=== PATIENT | male | born 1985 | race Asian ===

== ENCOUNTER 2018-05-28 00:12 | Emergency (ER) | payer SELFPAY ==
[~2018-05-28] VITALS: Ht 172.7 cm; Wt 68.0 kg
[~2018-05-28 00:12] MED LIST: PROZAC10 MG ORAL; VALIUM2 MG ORAL
[2018-05-28 00:15] VITALS: BP 114/74
--- NOTE | 2018-05-28 00:15 | NUR ---
ED Nurse Note: pt brought in by EMS c/o abd pain started today after dinner, pt states he has hx pancreatitis and drank alcohol (sake) and started having pain. pt states he was seen by doctor 2months ago for same problem. pt AA&ox4, gcs=15, skin warm and dry, resp even and unlabored on RA, +Nausea but no active v/d at this time, +tenderness on abd diffused, active BS, will cont monitor. VSS. ERMD aware pt's condition.
[2018-05-28] MEDS ORDERED: Morphine Sulfate 4mg/ml Inj (IV USE ONLY) IVP ONE (00:45)
--- NOTE | 2018-05-28 01:00 | NUR ---
ED Nurse Note: pt continue to have pain after pain med, 12/06 on abd area, ERMD notified.
[2018-05-28] MEDS ORDERED: HYDROmorphone 1mg/ml Carpuject IVP ONE (01:15)
[2018-05-28 01:16] LABS: HEMATOCRIT 46.9 % (42.0-52.0); HEMOGLOBIN 15.9 G/DL (14.2-18.0); MEAN CORPUSCULAR VOLUME 94 FL (80-99); PLATELET COUNT 264 K/UL (150-450); RED BLOOD COUNT 4.99 M/UL (4.70-6.10); RED CELL DISTRIBUTION WIDTH 12.1 % (11.6-14.8)
[2018-05-28 01:21] LABS: ANION GAP 19 mmol/L (5-15); BLOOD UREA NITROGEN 11 mg/dL (7-18); CALCIUM 9.1 MG/DL (8.5-10.1); CARBON DIOXIDE 22 MMOL/L (21-32); CHLORIDE 102 MMOL/L (98-107); CREATININE 1.3 MG/DL (0.55-1.30); POTASSIUM 3.3 MMOL/L (3.5-5.1); SODIUM 143 MMOL/L (136-145)
[2018-05-28 01:26] LABS: ALANINE AMINOTRANSFERASE 27 U/L (12-78); ALBUMIN 4.2 G/DL (3.4-5.0); ALBUMIN/GLOBULIN RATIO 1.3 (1.0-2.7); ALKALINE PHOSPHATASE 68 U/L (46-116); ASPARTATE AMINO TRANSFERASE 23 U/L (15-37); BILIRUBIN,TOTAL 0.4 MG/DL (0.2-1.0)
[2018-05-28] MEDS ORDERED: Isovue-300 100ml vial INJ PRN (01:45)
--- NOTE | 2018-05-28 01:58 | NUR ---
ED Nurse Note: PT OFF TO CT
[2018-05-28] MEDS ORDERED: Ketorolac 30mg Inj IV ONE (03:15)
[2018-05-28] MEDS ORDERED: Dicyclomine HCl 10mg/5ml oral soln ORAL ONE (03:15)
[2018-05-28] MEDS ORDERED: Lidocaine 2% Visc 15ml soln ORAL ONE (03:15)
[2018-05-28] MEDS ORDERED: Mylanta II UD 30ml ORAL ONE (03:15)
[2018-05-28] MEDS ORDERED: RANITIDINE HCL150 MG ORAL (03:26)
[2018-05-28] MEDS ORDERED: ONDANSETRON ODT4 MG BC (03:26)
[2018-05-28] MEDS ORDERED: TYLENOL EXTRA500 MG ORAL (03:26)
--- NOTE | 2018-05-28 03:45 | NUR ---
ED Nurse Note: pt cleared to be d/c per ERMD, pt discharge and aftercare instruction provided w/ prescription, pt education done via discussion and handout, pt advised to follow up with pcp or return to ed if sx worsen or new sx develop, pt verbalized understanding and agrees with plan, iv d/c and wristband removed, vss, ambulatory w/ steady gait, left w/ all belongings, pt accompanied by .
[2018-05-28 03:48] VITALS: BP 118/67
--- NOTE | 2018-05-28 04:49 | Emergency Room Report ---
History of Present Illness General Chief Complaint: Abdominal Pain Source: Patient, Significant Other, EMS Present Illness HPI 32-year-old male presents ED for evaluation. Brought in by EMS complaining of abdominal pain and vomiting. Started a few hours ago. at bedside states patient has history of pancreatitis. Patient admits to drinking tonight. Pain is sharp, 10 out of 10, localized to upper quadrant. denies fevers chills. Denies chest pain or shortness of breath. No other aggravating relieving factors. Denies any other associated symptoms Allergies: Coded Allergies: No Known Allergies (Unverified , 05/28/18) Patient History Past Medical History: other - pancreatitis Past Surgical History: none Pertinent Family History: none Social History: Reports: alcohol use; Denies: smoking, drug use Immunizations: UTD Reviewed Nursing Documentation: PMH: Agreed; PSxH: Agreed Nursing Documentation-PMH Past Medical History: No History, Except For Review of Systems All Other Systems: negative except mentioned in HPI Physical Exam Vital Signs Date Time Temp Pulse Resp B/P (MAP) Pulse Ox O2 Delivery O2 Flow Rate FiO2 05/28/18 00:07 98.1 96 12 99/65 99 05/28/18 00:15 Room Air Sp02 EP Interpretation: reviewed, normal General Appearance: alert, GCS 15, non-toxic, severe distress Head: normocephalic, atraumatic Eyes: bilateral eye normal inspection, bilateral eye PERRL ENT: hearing grossly normal, normal pharynx, no angioedema, normal voice Neck: full range of motion, supple/symm/no masses Respiratory: chest non-tender, lungs clear, normal breath sounds, speaking full sentences Cardiovascular #1: regular rate, rhythm, no edema Cardiovascular #2: 2+ carotid (R), 2+ carotid (L), 2+ radial (R), 2+ radial (L) , 2+ dorsalis pedis (R), 2+ dorsalis pedis (L) Gastrointestinal: normal bowel sounds, soft, non-distended, no rebound, tenderness - epigastric Rectal: deferred Genitourinary: normal inspection, no CVA tenderness Musculoskeletal: back normal, gait/station normal, normal range of motion, non- tender Neurologic: alert, oriented x3, responsive, motor strength/tone normal, sensory intact, speech normal Psychiatric: judgement/insight normal, memory normal, anxious Reflexes: 3+ bicep (R), 3+ bicep (L), 3+ tricep (R), 3+ tricep (L), 3+ knee (R) , 3+ knee (L) Skin: normal color, no rash, warm/dry, well hydrated Lymphatic: no adenopathy Medical Decision Making Diagnostic Impression: Primary Impression: Alcohol abuse Additional Impression: Abdominal pain Qualified Codes: R10.10 - Upper abdominal pain, unspecified ER Course Hospital Course 32-year-old M presents to ED with abdominal pain Differential diagnosis includes- pancreatitis, gastritis, appendicits Clinical course Patient placed on stretcher. After initial history and physical I ordered labs , IV fluids, pain medications and CT scan Labs - noted leukocytosis, electrolytes ok, LFTs normal, lipase normal, alcohol level elevated CT scan shows no acute pathology Patient continues to have pain and is asking for additional pain meds. Patient did ask what pain medication he was given initially in how he milligrams he was given. I suspect drug-seeking behavior. Abdomen was soft. I see no acute pathology on CT to correlate with his exam I strongly encourage patient to stop drinking alcohol. Safe for discharge close outpatient follow-up. Does not have a PMD. We'll provide referrals I feel this is a highly complex case requiring extensive working including EKG/ Rhythm strip, Xray/CT/US, Blood/urine lab work, repeat exams while in ED, and administration of strong opiates/narcotics for pain control, admission to hospital or close patient follow up. Diagnosis - abdominal pain, alcohol abuse Stable and discharged to home with Rx zantac, zofran, tylenol. Followup with PMD. Return to ED if symptoms recur or worsen Labs Test 05/28/18 00:26 White Blood Count 18.0 K/UL (4.8-10.8) Red Blood Count 4.99 M/UL (4.70-6.10) Hemoglobin 15.9 G/DL (14.2-18.0) Hematocrit 46.9 % (42.0-52.0) Mean Corpuscular Volume 94 FL (80-99) Mean Corpuscular Hemoglobin 31.9 PG (27.0-31.0) Mean Corpuscular Hemoglobin Concent 33.9 G/DL (32.0-36.0) Red Cell Distribution Width 12.1 % (11.6-14.8) Platelet Count 264 K/UL (150-450) Mean Platelet Volume 7.6 FL (6.5-10.1) Neutrophils (%) (Auto) % (45.0-75.0) Lymphocytes (%) (Auto) % (20.0-45.0) Monocytes (%) (Auto) % (1.0-10.0) Eosinophils (%) (Auto) % (0.0-3.0) Basophils (%) (Auto) % (0.0-2.0) Sodium Level 143 MMOL/L (136-145) Potassium Level 3.3 MMOL/L (3.5-5.1) Chloride Level 102 MMOL/L (98-107) Carbon Dioxide Level 22 MMOL/L (21-32) Anion Gap 19 mmol/L (5-15) Blood Urea Nitrogen 11 mg/dL (7-18) Creatinine 1.3 MG/DL (0.55-1.30) Estimat Glomerular Filtration Rate > 60 mL/min (>60) Glucose Level 157 MG/DL (74-106) Calcium Level 9.1 MG/DL (8.5-10.1) Total Bilirubin 0.4 MG/DL (0.2-1.0) Aspartate Amino Transf (AST/SGOT) 23 U/L (15-37) Alanine Aminotransferase (ALT/SGPT) 27 U/L (12-78) Alkaline Phosphatase 68 U/L (46-116) Total Protein 7.4 G/DL (6.4-8.2) Albumin 4.2 G/DL (3.4-5.0) Globulin 3.2 g/dL Albumin/Globulin Ratio 1.3 (1.0-2.7) Lipase 121 U/L (73-393) Serum Alcohol 116 mg/dL CT/MRI/US Diagnostic Results CT/MRI/US Diagnostic Results : Imaging Test Ordered: CT A/P Impression Lower lungs: No acute findings. Liver: No acute findings. Fatty liver. Gallbladder: No acute findings. Spleen, pancreas, and adrenal glands: No acute findings. Kidneys: No hydronephrosis or obstructive nephrolithiasis. Both ureters are mildly dilated without obstructive process or stone is identified. This may be due to back pressure from a severely distended bladder. Bowel: No bowel obstruction. The appendix is normal. Bladder: Severely distended without wall thickening. Pelvic organs: Unremarkable. Aorta: No aneurysm. Bones: No acute fracture. Last Vital Signs Date Time Temp Pulse Resp B/P (MAP) Pulse Ox O2 Delivery O2 Flow Rate FiO2 05/28/18 03:48 98.7 84 18 118/67 100 Room Air Status: improved Disposition: HOME, SELF-CARE Condition: Stable Scripts Acetaminophen* (TYLENOL EXTRA STRENGTH*) 500 Mg Tablet 500 MG ORAL Q8H PRN for Prn Headache/Temp > 101, #30 TAB 0 Refills Prov: Surendra Alcantara MD 05/28/18 Ondansetron Odt* (ZOFRAN ODT*) 4 Mg Tab.rapdis 4 MG BC EVERY 8 HOURS, #10 TAB 0 Refills Prov: Surendra Alcantara MD 05/28/18 Ranitidine Hcl* (ZANTAC*) 150 Mg Tablet 150 MG ORAL TWICE A DAY, #30 TAB Prov: Surendra Alcantara MD 05/28/18 Referrals: NOT CHOSEN IPA/,REFERRING (PCP) [facility] Patient Instructions: Gastritis, Adult, [id number] Surendra Alcantara MD May 28, 2018 04:49
--- NOTE | 2018-05-28 09:14 | Diagnostic Imaging Report ---
Clinical Indication: Abdominal pain for 2 days Technique: No oral contrast utilized, per emergency room physician request IV administration nonionic contrast. Venous phase spiral acquisition obtained through the abdomen and pelvis. Multiplanar reconstructions were generated. Total dose length product 806 mGycm. CTDIvol(s) 14.56 mGy. Dose reduction achieved using automated exposure control Comparison: none Findings: The appendix is normal. No small bowel distention. No evidence of diverticulosis or diverticulitis. No free or loculated intraperitoneal gas or fluid. There is a small sliding-type hiatal hernia. The stomach and duodenum are otherwise unremarkable. The liver is equivocally minimally hypoattenuating. Subcentimeter low-attenuation lesions are seen in segment 7 and near the hepatic hilum. Focal fatty infiltration is seen in the usual location adjacent to the falciform ligament. The gallbladder, bile ducts, pancreas, spleen, adrenals are unremarkable. The proximal ureters are somewhat ectatic bilaterally, but no downstream obstructive lesion is demonstrated. The kidneys are otherwise unremarkable. No renal or ureteral calculi. The bladder is somewhat distended. No pelvic mass or adenopathy. No retroperitoneal or mesenteric mass or adenopathy. The included lung bases are clear. The bones are unremarkable. Impression: Bladder distention. Mild proximal ureterectasis is likely secondary to such Borderline fatty liver Subcentimeter low-attenuation liver lesions, too small to characterize, most likely benign simple cysts or bile hamartomas. No further follow-up necessary No acute abnormality This agrees with the preliminary interpretation provided overnight by [facility]erad[facility] service. The CT scanner at [facility] is accredited by the [employer] and the scans are performed using protocols designed to limit radiation exposure to as low as reasonably achievable to attain images of sufficient resolution adequate for diagnostic evaluation.
== END 2018-05-28 03:52 | disposition home or self-care (01) ==
LOC: EDBD 00:12 → EMR 00:46
DX: F10.10 Alcohol abuse, uncomplicated (principal); R10.10 Upper abdominal pain, unspecified
CPT/HCPCS: 36415; 74177; 80053; 83690; 85025; 96361; 96374; 96375; 99284; G0480; J1170; J1885; J2270; J2405; Q9967; S0028; 80329

== ENCOUNTER 2018-06-08 05:55 | Emergency (ER) | payer SELFPAY ==
[~2018-06-08] VITALS: Ht 167.6 cm; Wt 68.0 kg
[2018-06-08 05:55] VITALS: BP 129/78
[~2018-06-08 05:55] MED LIST changes: +ONDANSETRON ODT4 MG BC; +RANITIDINE HCL150 MG ORAL; +TYLENOL EXTRA500 MG ORAL
--- NOTE | 2018-06-08 05:55 | NUR ---
ED Nurse Note: Pt was BIBA from home. C/o lower abdominal pain 10/ today. Pt is A/O X4, Pt is very anxiety at this time, vital signs stable, waiting for orders.
--- NOTE | 2018-06-08 06:08 | Emergency Room Report ---
History of Present Illness General Chief Complaint: Abdominal Pain Source: Patient (Moy Guillen DO) Present Illness HPI Patient presents with complaints of epigastric abdominal pain nausea vomiting Reports that he gets these symptoms every 2 months He feels that it is from stress Denies any chest pain or shortness of breath Denies any diarrhea Pain is mainly epigastric Denies any neck pain or photophobia Denies any drug abuse he does report previous alcohol intake however denies any recently (ThuMoy sun DO) Allergies: Coded Allergies: No Known Allergies (Unverified , 05/28/18) Patient History Past Medical History: see triage record Pertinent Family History: none Reviewed Nursing Documentation: PMH: Agreed; PSxH: Agreed (ThuMoy olivo DO) Nursing Documentation-PMH Past Medical History: No History, Except For (ThupallaviMoy AMES) Review of Systems All Other Systems: negative except mentioned in HPI (ThupallaviMoy AMES) Physical Exam Vital Signs Date Time Temp Pulse Resp B/P (MAP) Pulse Ox O2 Delivery O2 Flow Rate FiO2 06/08/18 05:50 98.2 75 18 127/75 98 Room Air Sp02 EP Interpretation: reviewed, normal General Appearance: mild distress - in discomfort Head: normocephalic, atraumatic Eyes: bilateral eye PERRL, bilateral eye EOMI ENT: hearing grossly normal, normal pharynx, TMs + canals normal, uvula midline Neck: full range of motion, supple, no meningismus, no bony tend Respiratory: lungs clear, normal breath sounds, no rhonchi, no respiratory distress, no retraction, no accessory muscle use Cardiovascular #1: normal peripheral pulses, regular rate, rhythm, no edema, no gallop, no JVD, no murmur Gastrointestinal: normal bowel sounds, non tender - No discomfort on palpation however subjectively points to the epigastric region, soft, no mass, no organomegaly, non-distended, no guarding, no hernia, no pulsatile mass, no rebound Genitourinary: no CVA tenderness Musculoskeletal: normal inspection Neurologic: oriented x3, responsive, sales and catering coordinator III-XII nml as tested, motor strength/ tone normal, sensory intact Psychiatric: mood/affect normal Skin: normal color, no rash, warm/dry, palpation normal Lymphatic: normal inspection, no adenopathy (ThuMoy olivo DO) Medical Decision Making Diagnostic Impression: Primary Impression: Abdominal pain Qualified Codes: R10.13 - Epigastric pain Additional Impression: Alcohol abuse ER Course Patient is a fairly complex patient with multiple differential to consideration including but not limited to cardiac cardiopulmonary and vascular emergencies Patient has had recent CT imaging in one was not repeated at this time Patient does require further reevaluation however (Moy Guillen DO) ER Course Please see above note. He admits to alcohol recently. Patient is improved with medical treatment. Lipase normal. White count 14,000. Patient refused chest x-ray. Laboratory Tests Test 06/08/18 06:28 White Blood Count 14.5 K/UL (4.8-10.8) H Red Blood Count 5.03 M/UL (4.70-6.10) Hemoglobin 16.0 G/DL (14.2-18.0) Hematocrit 48.3 % (42.0-52.0) Mean Corpuscular Volume 96 FL (80-99) Mean Corpuscular Hemoglobin 31.9 PG (27.0-31.0) H Mean Corpuscular Hemoglobin Concent 33.2 G/DL (32.0-36.0) Red Cell Distribution Width 12.3 % (11.6-14.8) Platelet Count 286 K/UL (150-450) Mean Platelet Volume 7.3 FL (6.5-10.1) Neutrophils (%) (Auto) 51.3 % (45.0-75.0) Lymphocytes (%) (Auto) 39.5 % (20.0-45.0) Monocytes (%) (Auto) 6.6 % (1.0-10.0) Eosinophils (%) (Auto) 1.2 % (0.0-3.0) Basophils (%) (Auto) 1.4 % (0.0-2.0) Sodium Level 141 MMOL/L (136-145) Potassium Level 3.5 MMOL/L (3.5-5.1) Chloride Level 102 MMOL/L (98-107) Carbon Dioxide Level 21 MMOL/L (21-32) Anion Gap 18 mmol/L (5-15) H Blood Urea Nitrogen 22 mg/dL (7-18) H Creatinine 1.1 MG/DL (0.55-1.30) Estimate Glomerular Filtration Rate > 60 mL/min (>60) Glucose Level 94 MG/DL (74-106) Calcium Level 9.1 MG/DL (8.5-10.1) Total Bilirubin 0.4 MG/DL (0.2-1.0) Aspartate Amino Transferase (AST) 31 U/L (15-37) Alanine Aminotransferase (ALT) 35 U/L (12-78) Alkaline Phosphatase 71 U/L (46-116) Total Protein 7.5 G/DL (6.4-8.2) Albumin 4.2 G/DL (3.4-5.0) Globulin 3.3 g/dL Albumin/Globulin Ratio 1.3 (1.0-2.7) Lipase 126 U/L (73-393) (Kiran Abreu MD) Rhythm Strip Diag. Results EP Interpretation: yes Rhythm: NSR, no PVC's, no ectopy (Kiran Abreu MD) Chest X-Ray Diagnostic Results Chest X-Ray Diagnostic Results : Chest X-Ray Ordered: Yes # of Views/Limited/Complete: 1 View Indication: Other EP Interpretation: Yes Interpretation: no consolidation, no effusion, no pneumothorax Impression: No acute disease Electronically Signed by: Electronically signed by Kiran Abreu MD (Kiran Abreu MD) Last Vital Signs Date Time Temp Pulse Resp B/P (MAP) Pulse Ox O2 Delivery O2 Flow Rate FiO2 06/08/18 05:50 98.2 75 18 127/75 98 [facility] Last Vital Signs Date Time Temp Pulse Resp B/P (MAP) Pulse Ox O2 Delivery O2 Flow Rate FiO2 06/08/18 08:30 98.0 66 16 130/80 98 Room Air Status: improved (Kiran Abreu MD) Disposition: HOME, SELF-CARE Condition: Improved Scripts Mag Hydrox/Al Hydrox/Simeth (MAALOX MAXIMUM STRENGTH SUSP) 355 Ml Oral.susp 30 ML PO Q6HR PRN for epigastric pain, #240 ML Prov: Kiran Abreu MD 06/08/18 Famotidine (PEPCID AC) 20 Mg Tablet 20 MG PO DAILY, #30 TAB Prov: Kiran Abreu MD 06/08/18 [facility] Jun 08, 2018 06:08 Kiran Abreu MD Jun 08, 2018 07:38
[2018-06-08] MEDS ORDERED: DiphenhydrAMINE 50mg/ml Inj IVP ONE (06:15)
[2018-06-08] MEDS ORDERED: Morphine Sulfate 4mg/ml Inj (IV USE ONLY) IVP ONE (06:15)
[2018-06-08] MEDS ORDERED: LORazepam Inj 2mg/ml 1ml IV ONE (06:15)
[2018-06-08] MEDS ORDERED: Metoclopramide 10mg/2ml Inj IVP ONE (06:15)
--- NOTE | 2018-06-08 06:20 | NUR ---
ED Nurse Note: Blood sample collected and sent to Lab.
--- NOTE | 2018-06-08 06:21 | NUR ---
ED Nurse Note: Pt refused to have X-ray done due to insurance reason.
--- NOTE | 2018-06-08 06:22 | NUR ---
ED Nurse Note: Pain meds given as ordered.
[2018-06-08 06:40] LABS: BASOPHILS % (AUTO) 1.4 % (0.0-2.0); EOSINOPHILS % (AUTO) 1.2 % (0.0-3.0); HEMATOCRIT 48.3 % (42.0-52.0); LYMPHOCYTES % (AUTO) 39.5 % (20.0-45.0); MEAN CORPUSCULAR VOLUME 96 FL (80-99); MONOCYTES % (AUTO) 6.6 % (1.0-10.0); NEUTROPHILS % (AUTO) 51.3 % (45.0-75.0); PLATELET COUNT 286 K/UL (150-450); RED BLOOD COUNT 5.03 M/UL (4.70-6.10); RED CELL DISTRIBUTION WIDTH 12.3 % (11.6-14.8); WHITE BLOOD COUNT 14.5 K/UL (4.8-10.8)
[2018-06-08 07:01] LABS: ANION GAP 18 mmol/L (5-15); BLOOD UREA NITROGEN 22 mg/dL (7-18); CALCIUM 9.1 MG/DL (8.5-10.1); CARBON DIOXIDE 21 MMOL/L (21-32); CHLORIDE 102 MMOL/L (98-107); CREATININE 1.1 MG/DL (0.55-1.30); POTASSIUM 3.5 MMOL/L (3.5-5.1); SODIUM 141 MMOL/L (136-145)
[2018-06-08 07:15] LABS: ALANINE AMINOTRANSFERASE 35 U/L (12-78); ALBUMIN 4.2 G/DL (3.4-5.0); ALBUMIN/GLOBULIN RATIO 1.3 (1.0-2.7); ALKALINE PHOSPHATASE 71 U/L (46-116); ASPARTATE AMINO TRANSFERASE 31 U/L (15-37); BILIRUBIN,TOTAL 0.4 MG/DL (0.2-1.0)
[2018-06-08] MEDS ORDERED: MAALOX MAXIMUM355 M1 PO (07:40)
[2018-06-08] MEDS ORDERED: PEPCID AC20 M2 PO (07:40)
[2018-06-08 08:30] VITALS: BP 130/80
--- NOTE | 2018-06-08 08:30 | NUR ---
discharged home with instruction and rx but patient left the er without written instruction and rx . ambulatory with steady gait
--- NOTE | 2018-06-08 11:14 | Diagnostic Imaging Report ---
Indication: Cough Technique: One view of the chest Comparison: none Findings: Lungs and pleural spaces are clear. Heart size is normal Impression: No acute process
== END 2018-06-08 08:30 | disposition home or self-care (01) ==
LOC: EDBD 05:55 → EMR 06:22
DX: R10.13 Epigastric pain (principal); F10.10 Alcohol abuse, uncomplicated; R11.2 Nausea with vomiting, unspecified
CPT/HCPCS: 36415; 71045; 80053; 83690; 85025; 96361; 96374; 96375; 99284; J1200; J2270; J2765; S0028

== ENCOUNTER 2018-11-28 00:54 | Emergency (ER) | payer SELFPAY ==
[~2018-11-28] VITALS: Ht 175.3 cm; Wt 68.0 kg
[~2018-11-28 00:54] MED LIST changes: +MAALOX MAXIMUM355 M1 PO; +PEPCID AC20 M2 PO
--- NOTE | 2018-11-28 01:00 | NUR ---
ED Nurse Note: PT AMBULATED TO ED C/O OF BLOODY EMESIS SINCE 10AM ON 11/27/18 WITH ABDOMINAL PAIN. PT APPEARS PALE, PT IS ACTIVELY SHIVERING. TEMP AT BED IS 97.4. PT AO4. SHAKING VSS. IV ACCESS ESTABLISHED. BLOOD COLLECTED; SENT DOWN TO LAB. FAMILY AT BEDSIDE. MEDICATED; TOLERATED WELL. REPORTS NAUSEA. NO EMISES AT THE MOMENT.
--- NOTE | 2018-11-28 01:08 | Emergency Room Report ---
History of Present Illness General Chief Complaint: Abdominal Pain Source: Patient Present Illness HPI 33-year-old male history of alcohol abuse history of pancreatitis presents with epigastric pain that started this a.m., he had one alcoholic drink last night, no fevers no chills, patient has been vomiting with some no chest pain no shortness of breath, patient has been vomiting aggravated with alcohol alleviated by nitroglycerin, severity is moderate, constant, patient presents for evaluation. Allergies: Coded Allergies: No Known Allergies (Unverified , 05/28/18) Patient History Past Medical History: see triage record Social History: Reports: smoking, alcohol use Reviewed Nursing Documentation: PMH: Agreed; PSxH: Agreed Nursing Documentation-PMH Past Medical History: No History, Except For Review of Systems All Other Systems: negative except mentioned in HPI Physical Exam Vital Signs Date Time Temp Pulse Resp B/P (MAP) Pulse Ox O2 Delivery O2 Flow Rate FiO2 11/28/18 00:58 97.3 105 23 100 Room Air Sp02 EP Interpretation: reviewed, normal General Appearance: well appearing, alert, mild distress Head: normocephalic, atraumatic Eyes: bilateral eye PERRL, bilateral eye EOMI ENT: uvula midline, moist mucus membranes Neck: supple, thyroid normal, supple/symm/no masses Respiratory: lungs clear, no respiratory distress, no retraction, no accessory muscle use Cardiovascular #1: normal peripheral pulses, no edema, no gallop, no murmur, tachycardia Gastrointestinal: soft, no guarding, no rebound, tenderness - Epigastrically Musculoskeletal: normal inspection Neurologic: alert, oriented x3 Psychiatric: anxious Skin: no rash, warm/dry Medical Decision Making Diagnostic Impression: Primary Impression: Opioid withdrawal ER Course Patient with epigastric pain concerning for pancreatitis versus gastritis versus cholecystitis Patient given pain medication fluids, patient's pain is slowly resolving, patient found to have a leukocytosis, patient had a similar result in May [address] scan Evaluation 1:51 AM, patient refused CT and x-ray due to cost of the exam Patient with leukocytosis most likely a stress reaction Reevaluation 2:25 AM, patient's pain is well controlled, patient also endorsed that he has been tapering opioids, patient is most likely going through opioid withdrawal will provide patient with return precautions disposition home Laboratory Tests Test 11/28/18 01:00 White Blood Count 19.4 K/UL (4.8-10.8) H Red Blood Count 5.34 M/UL (4.70-6.10) Hemoglobin 16.2 G/DL (14.2-18.0) Hematocrit 48.0 % (42.0-52.0) Mean Corpuscular Volume 90 FL (80-99) Mean Corpuscular Hemoglobin 30.2 PG (27.0-31.0) Mean Corpuscular Hemoglobin Concent 33.7 G/DL (32.0-36.0) Red Cell Distribution Width 11.4 % (11.6-14.8) L Platelet Count 340 K/UL (150-450) Mean Platelet Volume 6.3 FL (6.5-10.1) L Neutrophils (%) (Auto) % (45.0-75.0) Lymphocytes (%) (Auto) % (20.0-45.0) Monocytes (%) (Auto) % (1.0-10.0) Eosinophils (%) (Auto) % (0.0-3.0) Basophils (%) (Auto) % (0.0-2.0) Prothrombin Time 10.2 SEC (9.30-11.50) Prothrombin Time INR 1.0 (0.9-1.1) PTT 29 SEC (23-33) Sodium Level 139 MMOL/L (136-145) Potassium Level 3.6 MMOL/L (3.5-5.1) Chloride Level 100 MMOL/L (98-107) Carbon Dioxide Level 24 MMOL/L (21-32) Anion Gap 15 mmol/L (5-15) Blood Urea Nitrogen 10 mg/dL (7-18) Creatinine 1.2 MG/DL (0.55-1.30) Estimate Glomerular Filtration Rate > 60 mL/min (>60) Glucose Level 145 MG/DL (74-106) H Calcium Level 9.6 MG/DL (8.5-10.1) Total Bilirubin 0.5 MG/DL (0.2-1.0) Aspartate Amino Transferase (AST) 17 U/L (15-37) Alanine Aminotransferase (ALT) 31 U/L (12-78) Alkaline Phosphatase 74 U/L (46-116) Total Protein 9.0 G/DL (6.4-8.2) H Albumin 5.1 G/DL (3.4-5.0) H Globulin 3.9 g/dL Albumin/Globulin Ratio 1.3 (1.0-2.7) Lipase 148 U/L (73-393) Serum Alcohol < 3 mg/dL EKG Diagnostic Results EKG Time: 01:09 EP Interpretation: NSR, rate 98, QTc 579, no acute ST elevations, normal axis Rhythm Strip Diag. Results Rhythm Strip Time: 01:43 EP Interpretation: yes Rate: 98 Rhythm: NSR, no PVC's, no ectopy Last Vital Signs Date Time Temp Pulse Resp B/P (MAP) Pulse Ox O2 Delivery O2 Flow Rate FiO2 11/28/18 00:58 97.3 105 23 100 Room Air Disposition: HOME, SELF-CARE Condition: Stable Scripts Famotidine (PEPCID AC) 20 Mg Tablet 20 MG PO BID, #60 TAB Prov: Dru Suarez MD 11/28/18 Dicyclomine Hcl* (DICYCLOMINE HCL*) 10 Mg Capsule 10 MG ORAL QID PRN for Abdominal cramps, #20 CAP Prov: Dru Suarez MD 11/28/18 Ondansetron (Zofran) 4 Mg Tablet 4 MG ORAL Q8H PRN for Nausea & Vomiting, #30 TAB 0 Refills Prov: Dru Suarez MD 11/28/18 Referrals: NOT CHOSEN IPA/,REFERRING (PCP) [facility] Torri Horan [facility]. [facility] Patient Instructions: Abdominal Pain, Adult, Opioid Withdrawal Additional Instructions: The patient was provided with discharge instructions, notified to follow-up with a primary care doctor and or specialist in the next 24-48 hours, and to return to the ED if they have worsening of their symptoms. Please note that this report is being documented using DRAGON technology. This can lead to erroneous entry secondary to incorrect interpretation by the dictating instrument. Dru Suarez MD Nov 28, 2018 01:08
[2018-11-28] MEDS ORDERED: Omnipaque-300 100ml vial INJ PRN (01:15)
[2018-11-28] MEDS ORDERED: Lidocaine 2% Visc 15ml soln ORAL ONE (01:15)
[2018-11-28] MEDS ORDERED: Metoclopramide 10mg/2ml Inj IVP ONE (01:15)
[2018-11-28] MEDS ORDERED: DiphenhydrAMINE 50mg/ml Inj IVP ONE (01:15)
[2018-11-28] MEDS ORDERED: Morphine Sulfate 4mg/ml Inj (IV USE ONLY) IVP ONE (01:15)
[2018-11-28] MEDS ORDERED: Mylanta II UD 30ml ORAL ONE (01:15)
[2018-11-28 01:23] VITALS: BP 145/88
[2018-11-28 01:23] LABS: HEMOGLOBIN 16.2 G/DL (14.2-18.0); MEAN CORPUSCULAR VOLUME 90 FL (80-99); PLATELET COUNT 340 K/UL (150-450); RED BLOOD COUNT 5.34 M/UL (4.70-6.10); RED CELL DISTRIBUTION WIDTH 11.4 % (11.6-14.8); WHITE BLOOD COUNT 19.4 K/UL (4.8-10.8)
[2018-11-28 01:53] LABS: ANION GAP 15 mmol/L (5-15); BLOOD UREA NITROGEN 10 mg/dL (7-18); CALCIUM 9.6 MG/DL (8.5-10.1); CARBON DIOXIDE 24 MMOL/L (21-32); CHLORIDE 100 MMOL/L (98-107); CREATININE 1.2 MG/DL (0.55-1.30); POTASSIUM 3.6 MMOL/L (3.5-5.1); SODIUM 139 MMOL/L (136-145)
[2018-11-28 01:58] LABS: ALANINE AMINOTRANSFERASE 31 U/L (12-78); ALBUMIN 5.1 G/DL (3.4-5.0); ALBUMIN/GLOBULIN RATIO 1.3 (1.0-2.7); ALKALINE PHOSPHATASE 74 U/L (46-116); ASPARTATE AMINO TRANSFERASE 17 U/L (15-37); BILIRUBIN,TOTAL 0.5 MG/DL (0.2-1.0)
[2018-11-28] MEDS ORDERED: ZOFRAN4 MG ORAL (02:28)
[2018-11-28] MEDS ORDERED: DICYCLOMINE HCL10 MG ORAL (02:28)
[2018-11-28] MEDS ORDERED: PEPCID AC20 M2 PO (02:28)
--- NOTE | 2018-11-28 02:40 | NUR ---
ER DISCHARGE NOTE: Patient is cleared to be discharged per ERMD, pt is aox4, on room air, with stable vital signs. accompanied by family member. pt was given dc and prescription instructions, pt was able to verbalize understanding, pt id band and iv site removed without complications. pt is able to ambulate with steady gait. pt took all belongings.
[2018-11-28 02:41] VITALS: BP 135/85
[2018-11-28 02:45] LABS: APPEARANCE,URINE CLEAR; BILIRUBIN, URINE NEGATIVE (NEGATIVE); COLOR,URINE PALE YELLOW; GLUCOSE, URINE (UA) NEGATIVE (NEGATIVE); KETONES,URINE 2+ (NEGATIVE); LEUKOCYTE ESTERASE ,URINE NEGATIVE (NEGATIVE); NITRITE,URINE NEGATIVE (NEGATIVE); PH,URINE 6.5 (4.5-8.0); PROTEIN,URINE NEGATIVE (NEGATIVE); UROBILINOGEN,URINE NORMAL MG/DL (0.0-1.0)
--- NOTE | 2018-11-28 16:15 | Cardiology Report ---
APPROVED REPORT EKG Measurement Heart [id number] ID [id number] Normal sinus rhythm Abnormal ECG
== END 2018-11-28 02:41 | disposition home or self-care (01) ==
LOC: EMR 01:00
DX: F11.23 Opioid dependence with withdrawal (principal); F17.200 Nicotine dependence, unspecified, uncomplicated
CPT/HCPCS: 36415; 80053; 80307; 81003; 83690; 85025; 85610; 85730; 86850; 86900; 86901; 93005; 96361; 96374; 96375; 99284; G0480; J1200; J2270; J2765; S0028; 80329

== ENCOUNTER 2019-01-24 16:58 | Emergency (ER) | payer SELFPAY ==
[~2019-01-24] VITALS: Ht 175.3 cm; Wt 68.0 kg
[~2019-01-24 16:58] MED LIST changes: +DICYCLOMINE HCL10 MG ORAL; +ZOFRAN4 MG ORAL
[2019-01-24] MEDS ORDERED: Morphine Sulfate 4mg/ml Inj (IV USE ONLY) IVP ONE (17:30)
--- NOTE | 2019-01-24 17:30 | NUR ---
ED Nurse Note:pt. came with abdominal pain and nausea no vomiting for 3 days, VSS, ambulatory, blood and urine sent to labs, given pain meds and fluids
[2019-01-24 17:47] VITALS: BP 128/81
--- NOTE | 2019-01-24 17:53 | Emergency Room Report ---
History of Present Illness General Chief Complaint: Nausea, Vomiting, and Diarrhea Source: Patient Present Illness HPI 33-year-old male presents to the emergency department complaining of 10 out of 10 severity epigastric abdominal pain x3 days. Patient reports associated nausea, vomiting and diarrhea. Patient denies blood in the vomit or stool and he denies black tarry stool. Patient reports history of pancreatitis in the past. He reports usually his pancreatitis is exacerbated by alcohol use. Patient denies alcohol use recently. Patient denies fevers and reports chills. He denies recent travel or ill contacts with similar symptoms. Denies CP, Palpitations, LOC, AMS, dizziness, Changes in Vision, Sensation, paresthesias, or a sudden severe headache. Allergies: Coded Allergies: No Known Allergies (Unverified , 05/28/18) Patient History Past Medical History: see triage record, other - pancreatitis Past Surgical History: none Pertinent Family History: none Social History: Reports: alcohol use Reviewed Nursing Documentation: PMH: Agreed; PSxH: Agreed Nursing Documentation-PMH Past Medical History: No History, Except For Review of Systems All Other Systems: negative except mentioned in HPI Physical Exam Vital Signs Date Time Temp Pulse Resp B/P (MAP) Pulse Ox O2 Delivery O2 Flow Rate FiO2 01/24/19 16:59 98.2 82 18 130/81 (97) 99 Room Air Sp02 EP Interpretation: reviewed, normal General Appearance: no apparent distress, alert, GCS 15, non-toxic Head: normocephalic, atraumatic Eyes: bilateral eye normal inspection, bilateral eye PERRL ENT: hearing grossly normal, normal voice Neck: full range of motion Respiratory: lungs clear, normal breath sounds, no wheezing, speaking full sentences Cardiovascular #1: regular rate, rhythm Gastrointestinal: normal bowel sounds, soft, non-distended, no guarding, tenderness - epigastric ttp, no RLQ or LLQ TTp, No appreciable RUQ TTP, negative murphys Musculoskeletal: normal range of motion, gait/station normal, non-tender Neurologic: alert, motor strength/tone normal, oriented x3, sensory intact, responsive, speech normal Psychiatric: judgement/insight normal Skin: no rash, normal color, normal inspection Medical Decision Making PA Attestation Dr. Pulido is my supervising Physician whom patient management has been discussed with. Diagnostic Impression: Primary Impression: UTI (urinary tract infection) Qualified Codes: N30.01 - Acute cystitis with hematuria Additional Impression: Abdominal pain Qualified Codes: R10.13 - Epigastric pain ER Course 33-year-old male presents to the emergency department complaining of 10 out of 10 severity epigastric abdominal pain x3 days. Patient reports associated nausea, vomiting and diarrhea. Patient denies blood in the vomit or stool and he denies black tarry stool. Patient reports history of pancreatitis in the past. He reports usually his pancreatitis is exacerbated by alcohol use. Patient denies alcohol use recently. Patient denies fevers and reports chills. He denies recent travel or ill contacts with similar symptoms. Denies CP, Palpitations, LOC, AMS, dizziness, Changes in Vision, Sensation, paresthesias, or a sudden severe headache. Ddx considered but are not limited to GE, colitis, acute appendicitis, SBO, Cyclical Vomiting secondary to THC, pancreatitis just to name a few. Vital signs: pt. is afebrile, H&PE are most consistent with pancreatitis vs GE , no evidence to suggest acute abdomen on physical exam. Pt. is nontoxic and in no acute distress. ORDERS: --CBC: mild wbc elevation 11.1 -CMP: : WNL- potassium 3.4 -Lipase: WNL -Amylase: WNL -UA: Indicative of UTI-- bacteria with increased inflammatory markers. ED INTERVENTIONS: -1000 NS iv hydration, -Zofran 4mg IV -4mg Morphine IV -Benadryl 50mg IV -Toradol IV - GI Cocktail PO -Pepcid PO -I do not identify an emergent condition at this time. With current presentation , pt. is stable for close outpatient follow up and conservative treatment. D/ w pt. to return promptly to ED with worsening or new symptoms.- Pt. verbalizes' understanding and agreement with proposed treatment plan. DISCHARGE: At this time pt. is stable for d/c to home. Will provide printed patient care instructions, and any necessary prescriptions. Care plan and follow up instructions have been discussed with the patient prior to discharge. Labs Test 01/24/19 17:30 White Blood Count 11.1 K/UL (4.8-10.8) Red Blood Count 5.19 M/UL (4.70-6.10) Hemoglobin 16.0 G/DL (14.2-18.0) Hematocrit 43.3 % (42.0-52.0) Mean Corpuscular Volume 84 FL (80-99) Mean Corpuscular Hemoglobin 30.8 PG (27.0-31.0) Mean Corpuscular Hemoglobin Concent 36.9 G/DL (32.0-36.0) Red Cell Distribution Width 10.6 % (11.6-14.8) Platelet Count 303 K/UL (150-450) Mean Platelet Volume 6.0 FL (6.5-10.1) Neutrophils (%) (Auto) 68.7 % (45.0-75.0) Lymphocytes (%) (Auto) 24.6 % (20.0-45.0) Monocytes (%) (Auto) 5.8 % (1.0-10.0) Eosinophils (%) (Auto) 0.1 % (0.0-3.0) Basophils (%) (Auto) 0.9 % (0.0-2.0) Urine Color Yellow Urine Appearance Slightly cloudy Urine pH 6 (4.5-8.0) Urine Specific [place] 1.020 (1.005-1.035) Urine Protein 1+ (NEGATIVE) Urine Glucose (UA) Negative (NEGATIVE) Urine Ketones 2+ (NEGATIVE) Urine Blood 1+ (NEGATIVE) Urine Nitrite Negative (NEGATIVE) Urine Bilirubin Negative (NEGATIVE) Urine Urobilinogen Normal MG/DL (0.0-1.0) Urine Leukocyte Esterase Negative (NEGATIVE) Urine RBC 2-4 /HPF (0 - 0) Urine WBC 40-60 /HPF (0 - 0) Urine Squamous Epithelial Cells None /LPF (NONE/OCC) Urine Bacteria Moderate /HPF (NONE) Sodium Level 140 MMOL/L (136-145) Potassium Level 3.4 MMOL/L (3.5-5.1) Chloride Level 100 MMOL/L (98-107) Carbon Dioxide Level 30 MMOL/L (21-32) Anion Gap 10 mmol/L (5-15) Blood Urea Nitrogen 15 mg/dL (7-18) Creatinine 1.2 MG/DL (0.55-1.30) Estimat Glomerular Filtration Rate > 60 mL/min (>60) Glucose Level 136 MG/DL (74-106) Calcium Level 9.6 MG/DL (8.5-10.1) Total Bilirubin 0.8 MG/DL (0.2-1.0) Aspartate Amino Transf (AST/SGOT) 11 U/L (15-37) Alanine Aminotransferase (ALT/SGPT) 26 U/L (12-78) Alkaline Phosphatase 69 U/L (46-116) Total Protein 8.6 G/DL (6.4-8.2) Albumin 4.9 G/DL (3.4-5.0) Globulin 3.7 g/dL Albumin/Globulin Ratio 1.3 (1.0-2.7) Amylase Level 52 U/L (25-115) Lipase 185 U/L (73-393) Serum Alcohol < 3 mg/dL Last Vital Signs Date Time Temp Pulse Resp B/P (MAP) Pulse Ox O2 Delivery O2 Flow Rate FiO2 01/24/19 16:59 98.2 82 18 130/81 (97) 99 Room Air Disposition: HOME, SELF-CARE Condition: Stable Scripts Ondansetron Odt* (ZOFRAN ODT*) 4 Mg Tab.rapdis 4 MG BC EVERY 6 HOURS PRN for Nausea & Vomiting, #10 TAB 0 Refills Prov: Kalee Gonzalez 01/24/19 Ranitidine Hcl* (ZANTAC*) 150 Mg Tablet 150 MG ORAL TWICE A DAY for 7 Days, #14 TAB Prov: Kalee Gonzalez 01/24/19 Cephalexin* (KEFLEX*) 500 Mg Capsule 500 MG ORAL EVERY 12 HOURS for 7 Days, #14 CAP 0 Refills Prov: Kalee Gonzalez 01/24/19 Referrals: NOT CHOSEN IPA/MD,REFERRING (PCP) Patient Instructions: Abdominal Pain, Adult, [id number] Additional Instructions: Take medications as directed. Follow up with a Primary Care Provider in 3-5 days, even if your symptoms have resolved. --Please review list of primary care clinics, if you do not already have a primary care provider Return sooner to ED if new symptoms occur, or current symptoms become worse. - Please note that this Emergency Department Report was dictated using [employer] writer technology software, occasionally this can lead to erroneous entry secondary to interpretation by the dictation equipment. Kalee Gonzalez Jan 24, 2019 17:53
[2019-01-24 18:07] LABS: BASOPHILS % (AUTO) 0.9 % (0.0-2.0); EOSINOPHILS % (AUTO) 0.1 % (0.0-3.0); HEMATOCRIT 43.3 % (42.0-52.0); LYMPHOCYTES % (AUTO) 24.6 % (20.0-45.0); MEAN CORPUSCULAR VOLUME 84 FL (80-99); MONOCYTES % (AUTO) 5.8 % (1.0-10.0); NEUTROPHILS % (AUTO) 68.7 % (45.0-75.0); PLATELET COUNT 303 K/UL (150-450); RED BLOOD COUNT 5.19 M/UL (4.70-6.10); RED CELL DISTRIBUTION WIDTH 10.6 % (11.6-14.8); WHITE BLOOD COUNT 11.1 K/UL (4.8-10.8)
[2019-01-24 18:08] LABS: APPEARANCE,URINE SLIGHTLY CLOUDY; BILIRUBIN, URINE NEGATIVE (NEGATIVE); GLUCOSE, URINE (UA) NEGATIVE (NEGATIVE); KETONES,URINE 2+ (NEGATIVE); LEUKOCYTE ESTERASE ,URINE NEGATIVE (NEGATIVE); NITRITE,URINE NEGATIVE (NEGATIVE); PH,URINE 6 (4.5-8.0); PROTEIN,URINE 1+ (NEGATIVE); UROBILINOGEN,URINE NORMAL MG/DL (0.0-1.0)
[2019-01-24 18:09] LABS: COLOR,URINE YELLOW
[2019-01-24 18:12] LABS: ANION GAP 10 mmol/L (5-15); BLOOD UREA NITROGEN 15 mg/dL (7-18); CALCIUM 9.6 MG/DL (8.5-10.1); CARBON DIOXIDE 30 MMOL/L (21-32); CHLORIDE 100 MMOL/L (98-107); CREATININE 1.2 MG/DL (0.55-1.30); POTASSIUM 3.4 MMOL/L (3.5-5.1); SODIUM 140 MMOL/L (136-145)
[2019-01-24 18:17] LABS: ALANINE AMINOTRANSFERASE 26 U/L (12-78); ALBUMIN 4.9 G/DL (3.4-5.0); ALBUMIN/GLOBULIN RATIO 1.3 (1.0-2.7); ALKALINE PHOSPHATASE 69 U/L (46-116); AMYLASE 52 U/L (25-115); ASPARTATE AMINO TRANSFERASE 11 U/L (15-37); BILIRUBIN,TOTAL 0.8 MG/DL (0.2-1.0)
[2019-01-24] MEDS ORDERED: Ketorolac 30mg Inj IV ONE (18:30)
[2019-01-24] MEDS ORDERED: DiphenhydrAMINE 50mg/ml Inj IVP ONE (18:30)
[2019-01-24] MEDS ORDERED: Lidocaine 2% Visc 15ml soln ORAL ONE (18:30)
[2019-01-24] MEDS ORDERED: Mylanta II UD 30ml ORAL ONE (18:30)
[2019-01-24] MEDS ORDERED: ZANTAC150 MG ORAL (18:44)
[2019-01-24] MEDS ORDERED: ONDANSETRON ODT4 MG BC (18:44)
[2019-01-24] MEDS ORDERED: CEPHALEXIN500 MG ORAL (18:44)
[2019-01-24 18:45] VITALS: BP 147/89
[2019-01-24 18:50] VITALS: BP 147/89
--- NOTE | 2019-01-24 18:50 | NUR ---
ER DISCHARGE NOTE: Patient is cleared to be discharged per ERMD, pt is aox4, on room air, with stable vital signs. pt was given dc and prescription instructions, pt was able to verbalize understanding, pt id band and iv site removed without complications. pt is able to ambulate with steady gait. pt took all belongings.
== END 2019-01-24 18:50 | disposition home or self-care (01) ==
LOC: EMR 17:15
DX: N30.01 Acute cystitis with hematuria (principal); R10.13 Epigastric pain; Z72.89 Other problems related to lifestyle
CPT/HCPCS: 36415; 80053; 81003; 82150; 83690; 85025; 87086; 96361; 96374; 96375; 99284; G0480; J1200; J1885; J2270; J2405; J7030

== ENCOUNTER 2019-01-25 18:40 | Emergency (ER) | payer SELFPAY ==
[~2019-01-25] VITALS: Ht 175.3 cm; Wt 69.9 kg
[~2019-01-25 18:40] MED LIST changes: +CEPHALEXIN500 MG ORAL; +ZANTAC150 MG ORAL
--- NOTE | 2019-01-25 18:55 | NUR ---
ED Nurse Note:' pt presents to ED c/o N/V and abd pain for 4 days. pt reports that he hasn't eaten anything since yesterday and he was seen here yesterday for the same symptoms. lab work was done yesterday. pt reports 8/10 diffuse abd pain. pt denies any diarrhea or respiratory or cardiac symptoms. will continue to monitor
[2019-01-25] MEDS ORDERED: Ketorolac 30mg Inj IV ONE (19:00)
[2019-01-25 19:05] VITALS: BP 112/82
[2019-01-25 19:43] VITALS: BP 139/85
--- NOTE | 2019-01-25 19:50 | NUR ---
ED Nurse Note: pt has asked for morphine and a prescription for vallium, ER LAUREN Love is aware
--- NOTE | 2019-01-25 19:58 | NUR ---
ED Nurse Note: LAUREN Love is at bedside speaking with pt
--- NOTE | 2019-01-25 20:14 | NUR ---
ED Nurse Note: pt states that he would like to stop the IV fluids and go home
[2019-01-25 20:20] VITALS: BP 139/85
--- NOTE | 2019-01-25 20:20 | NUR ---
ED Nurse Note: pt states that he wants to discontinue his fluids and would like to leave. LAUREN Love aware. pt signed AMA form and verbalized understanding of risks of leaving. pt asked for a prescription for nausea meds and was reminded that he recieved one yesterday here and that [facility] will not send pt home with prescriptions. pt was educated on his diagnosis and to continue taking antibiotics he was prescribed here yesterday for UTI. pt understands. IV and ID band removed without complications.
--- NOTE | 2019-01-25 21:30 | Emergency Room Report ---
History of Present Illness General Chief Complaint: Abdominal Pain Source: Patient Present Illness HPI 33-year-old male with history of opiate abuse, who was here yesterday at [facility] for abdominal pain, nausea vomiting here complaining of similar symptoms today. Complete work-up was done on him yesterday and patient was given a dose of morphine, IV fluids, and Zofran and was sent home with Zofran and Keflex for urinary tract infection. Patient appears here today with similar symptoms complaining of feeling chills, shaking, and multiple bouts of nonbloody emesis. After starting IV hydration and Phenergan patient still is requesting prescription for Valium as reports that it is a long weekend and has not been able to fill his Valium prescription. Patient has extensive cures history taking diazepam, and clonazepam. After I tell him that we cannot write any more benzodiazepines for him as patient is under the care of of his physician for that medication patient decides to leave AGAINST MEDICAL ADVICE. Patient stable at time of discharge with stable vital signs. Denies chest pain , shortness of breath palpitation. Allergies: Coded Allergies: No Known Allergies (Unverified , 05/28/18) Patient History Past Medical History: see triage record Past Surgical History: unable to obtain Pertinent Family History: none Social History: Reports: drug use - opiate dependence, benzo dependence Immunizations: UTD Reviewed Nursing Documentation: PMH: Agreed; PSxH: Agreed Nursing Documentation-PMH Past Medical History: No Stated History Review of Systems All Other Systems: negative except mentioned in HPI Physical Exam Vital Signs Date Time Temp Pulse Resp B/P (MAP) Pulse Ox O2 Delivery O2 Flow Rate FiO2 01/25/19 18:43 98.2 72 19 112/82 (92) 95 Room Air Sp02 EP Interpretation: reviewed, normal General Appearance: no apparent distress, alert, GCS 15, non-toxic Head: normocephalic, atraumatic ENT: hearing grossly normal, normal pharynx, no angioedema, normal voice Neck: full range of motion, supple/symm/no masses Respiratory: chest non-tender, lungs clear, normal breath sounds, no rhonchi, no respiratory distress, no wheezing, speaking full sentences Cardiovascular #1: regular rate, rhythm, no edema, no gallop, no JVD, no murmur Gastrointestinal: normal bowel sounds, non tender, soft, no mass, non-distended , no guarding, no rebound Rectal: deferred Genitourinary: normal inspection, no CVA tenderness Musculoskeletal: back normal, no calf tenderness Neurologic: alert, motor strength/tone normal, oriented x3, sensory intact, responsive, speech normal Psychiatric: judgement/insight normal, memory normal, anxious Skin: no rash Lymphatic: no adenopathy Medical Decision Making PA Attestation Diagnosis and treatment plans were reviewed and discussed with my supervising physician Dr. Suarez Diagnostic Impression: Primary Impression: Abdominal pain ER Course 33-year-old male with history of opiate abuse, who was here yesterday at [facility] for abdominal pain, nausea vomiting here complaining of similar symptoms today. Complete work-up was done on him yesterday and patient was given a dose of morphine, IV fluids, and Zofran and was sent home with Zofran and Keflex for urinary tract infection. Patient appears here today with similar symptoms complaining of feeling chills, shaking, and multiple bouts of nonbloody emesis. After starting IV hydration and Phenergan patient still is requesting prescription for Valium as reports that it is a long weekend and has not been able to fill his Valium prescription. Patient has extensive cures history taking diazepam, and clonazepam. After I tell him that we cannot write any more benzodiazepines for him as patient is under the care of of his physician for that medication patient decides to leave AGAINST MEDICAL ADVICE. Patient stable at time of discharge with stable vital signs. Denies chest pain , shortness of breath palpitation. Ddx considered but are not limited to: Opiate withdrawal, drug-seeking behavior , gastritis Vital signs: are WNL, pt. is afebrile H&PE are most consistent with: Opiate withdrawal, drug-seeking behavior, gastritis, patient left AGAINST MEDICAL ADVICE ORDERS: No blood work necessary as patient had a complete work-up yesterday within normal limits, ED INTERVENTIONS:NS bolus, Phenergan, Pepcid, Toradol, clonidine Patient left AGAINST MEDICAL ADVICE, stable at time of discharge Last Vital Signs Date Time Temp Pulse Resp B/P (MAP) Pulse Ox O2 Delivery O2 Flow Rate FiO2 01/25/19 20:20 98.3 82 18 139/85 99 Room Air Disposition: AGAINST MEDICAL ADVICE Condition: Stable Referrals: NOT CHOSEN IPA/,REFERRING (PCP) Ivan Kendall 29, 2019 21:30
== END 2019-01-25 20:20 | disposition home or self-care (01) ==
LOC: EMR 18:48
DX: R10.9 Unspecified abdominal pain (principal); Z53.29 Procedure and treatment not carried out because of patient's decision for other reasons; F11.11 Opioid abuse, in remission
CPT/HCPCS: 96361; 96374; 96375; 99284; J1885; J2550; J8499

== ENCOUNTER 2019-05-25 02:35 | Emergency (ER) | payer SELFPAY ==
[~2019-05-25] VITALS: Ht 177.8 cm; Wt 68.0 kg
[2019-05-25 02:50] VITALS: BP 160/102
--- NOTE | 2019-05-25 02:50 | NUR ---
ED Nurse Note: Pt is aaox4, ambulatory with steady gait.
--- NOTE | 2019-05-25 02:50 | NUR ---
ED Nurse Note: Pt walked into ED for c/o upper abdominal pain since 8pm last night. Pt also reports nausea and multiple episodes of vomiting. Tremors noted. Pt connected to monitor worker. Breathing is normal and unlabored. Pt appears anxious. Will continue to monitor.
[2019-05-25] MEDS ORDERED: QUETIAPINE FUMA25 MG ORAL (02:53)
--- NOTE | 2019-05-25 03:13 | Emergency Room Report ---
History of Present Illness General Chief Complaint: Abdominal Pain Source: Patient Present Illness HPI Patient is 33-year-old male brought in by self after increased epigastric pain. Reports having prior history of pancreatitis in the past. Previous history of polysubstance abuse. He had been having increased nausea and vomiting. Denies any hematemesis. Had previous ER visit for similar symptoms in the past. Allergies: Coded Allergies: No Known Allergies (Unverified , 05/28/18) COVID-19 Screening Contact w/high risk pt: No Recent Travel to affected area: No Experienced COVID-19 symptoms?: No Patient History Past Medical History: see triage record Reviewed Nursing Documentation: PMH: Agreed; PSxH: Agreed Nursing Documentation-PMH Past Medical History: No History, Except For Review of Systems All Other Systems: negative except mentioned in HPI Physical Exam Vital Signs Date Time Temp Pulse Resp B/P (MAP) Pulse Ox O2 Delivery O2 Flow Rate FiO2 05/25/19 02:49 98.8 112 22 160/102 (121) 99 Room Air Sp02 EP Interpretation: reviewed, normal General Appearance: normal inspection, well appearing, no apparent distress, alert, GCS 15 Head: atraumatic ENT: normal ENT inspection, hearing grossly normal, normal voice Neck: normal inspection, full range of motion, supple, no bony tend Respiratory: normal inspection, lungs clear, normal breath sounds, no respiratory distress, no retraction, no wheezing Cardiovascular #1: regular rate, rhythm, no edema Gastrointestinal: normal inspection, normal bowel sounds, non tender, soft, no guarding, no hernia Genitourinary: no CVA tenderness Musculoskeletal: normal inspection, back normal, normal range of motion Neurologic: alert, responsive, speech normal, normal inspection Psychiatric: normal inspection, judgement/insight normal, mood/affect normal Medical Decision Making Diagnostic Impression: Primary Impression: Abdominal pain ER Course Patient presented for abdominal pain. Differential diagnoses included ischemic bowel, appendicitis, perforated viscus, abdominal aortic aneurysm, inferior myocardial infarction, viral gastroenteritis among others.Because patient's complexity laboratory testing ordered. Electrolytes unremarkable Lipase was normal White blood count was elevated as previous when he is had similar episodes. Patient had recent CT imaging after a similar episode. This was unremarkable. No signs of peritonitis. Repeat exam continues to be benign. Patient appears to be stable for close outpatient follow up. The patient is advised to follow up with primary care doctor in 1-2 days. Patient is advised to return if any worsening condition or if any changes in status that are concerning. This report is dictated with [employer] impression printer software which may occasionally lead to discrepancies related to use of this software. Labs Test 05/25/19 03:00 05/25/19 03:40 05/25/19 03:55 White Blood Count 20.3 K/UL (4.8-10.8) Red Blood Count 5.03 M/UL (4.70-6.10) Hemoglobin 15.0 G/DL (14.2-18.0) Hematocrit 43.7 % (42.0-52.0) Mean Corpuscular Volume 87 FL (80-99) Mean Corpuscular Hemoglobin 29.8 PG (27.0-31.0) Mean Corpuscular Hemoglobin Concent 34.3 G/DL (32.0-36.0) Red Cell Distribution Width 11.3 % (11.6-14.8) Platelet Count 313 K/UL (150-450) Mean Platelet Volume 6.3 FL (6.5-10.1) Neutrophils (%) (Auto) % (45.0-75.0) Lymphocytes (%) (Auto) % (20.0-45.0) Monocytes (%) (Auto) % (1.0-10.0) Eosinophils (%) (Auto) % (0.0-3.0) Basophils (%) (Auto) % (0.0-2.0) Sodium Level 142 MMOL/L (136-145) Potassium Level 3.3 MMOL/L (3.5-5.1) Chloride Level 104 MMOL/L (98-107) Carbon Dioxide Level 28 MMOL/L (21-32) Anion Gap 10 mmol/L (5-15) Blood Urea Nitrogen 7 mg/dL (7-18) Creatinine 1.1 MG/DL (0.55-1.30) Estimat Glomerular Filtration Rate > 60 mL/min (>60) Glucose Level 143 MG/DL (74-106) Calcium Level 8.9 MG/DL (8.5-10.1) Total Bilirubin 0.5 MG/DL (0.2-1.0) Aspartate Amino Transf (AST/SGOT) 12 U/L (15-37) Alanine Aminotransferase (ALT/SGPT) 27 U/L (12-78) Alkaline Phosphatase 67 U/L (46-116) Troponin I 0.000 ng/mL (0.000-0.056) Total Protein 7.4 G/DL (6.4-8.2) Albumin 4.6 G/DL (3.4-5.0) Globulin 2.8 g/dL Albumin/Globulin Ratio 1.6 (1.0-2.7) Lipase 311 U/L (73-393) Serum Alcohol < 3 mg/dL Urine Color Yellow Urine Appearance Clear Urine pH 6.5 (4.5-8.0) Urine Specific [place] 1.020 (1.005-1.035) Urine Protein 1+ (NEGATIVE) Urine Glucose (UA) Negative (NEGATIVE) Urine Ketones 1+ (NEGATIVE) Urine Blood Negative (NEGATIVE) Urine Nitrite Negative (NEGATIVE) Urine Bilirubin Negative (NEGATIVE) Urine Urobilinogen 1 MG/DL (0.0-1.0) Urine Leukocyte Esterase 1+ (NEGATIVE) Urine RBC 0-2 /HPF (0 - 0) Urine WBC 2-4 /HPF (0 - 0) Urine Squamous Epithelial Cells Occasional /LPF Urine Amorphous Sediment Many /LPF (NONE) Urine Bacteria Few /HPF (NONE) Urine Mucus Moderate /LPF (NONE/OCC) Urine Opiates Screen Negative (NEGATIVE) Urine Barbiturates Screen Negative (NEGATIVE) Phencyclidine (PCP) Screen Negative (NEGATIVE) Urine Amphetamines Screen Negative (NEGATIVE) Urine Benzodiazepines Screen Positive (NEGATIVE) Urine Cocaine Screen Negative (NEGATIVE) Urine Marijuana (THC) Screen Positive (NEGATIVE) Last Vital Signs Date Time Temp Pulse Resp B/P (MAP) Pulse Ox O2 Delivery O2 Flow Rate FiO2 05/25/19 02:50 98.8 112 22 160/102 99 Room Air Status: improved Disposition: HOME, SELF-CARE Condition: Stable Scripts Ondansetron Odt* (ZOFRAN ODT*) 4 Mg Tab.rapdis 4 MG BC EVERY 6 HOURS PRN for Nausea & Vomiting, #10 TAB 0 Refills Prov: Chemo Shelton MD 05/25/19 Dicyclomine Hcl* (DICYCLOMINE HCL*) 10 Mg Capsule 10 MG ORAL QID, #20 CAP Prov: Chemo Shelton MD 05/25/19 Omeprazole (OMEPRAZOLE) 20 Mg Capsule.dr 20 MG ORAL DAILY, #30 CAP Prov: Chemo Shelton MD 05/25/19 Chemo Shelton MD May 25, 2019 03:13
[2019-05-25 03:20] LABS: HEMATOCRIT 43.7 % (42.0-52.0); MEAN CORPUSCULAR VOLUME 87 FL (80-99); PLATELET COUNT 313 K/UL (150-450); RED BLOOD COUNT 5.03 M/UL (4.70-6.10); RED CELL DISTRIBUTION WIDTH 11.3 % (11.6-14.8); WHITE BLOOD COUNT 20.3 K/UL (4.8-10.8)
[2019-05-25 03:30] LABS: ANION GAP 10 mmol/L (5-15); BLOOD UREA NITROGEN 7 mg/dL (7-18); CALCIUM 8.9 MG/DL (8.5-10.1); CARBON DIOXIDE 28 MMOL/L (21-32); CHLORIDE 104 MMOL/L (98-107); CREATININE 1.1 MG/DL (0.55-1.30); POTASSIUM 3.3 MMOL/L (3.5-5.1); SODIUM 142 MMOL/L (136-145)
[2019-05-25 03:34] LABS: ALANINE AMINOTRANSFERASE 27 U/L (12-78); ALBUMIN 4.6 G/DL (3.4-5.0); ALBUMIN/GLOBULIN RATIO 1.6 (1.0-2.7); ALKALINE PHOSPHATASE 67 U/L (46-116); ASPARTATE AMINO TRANSFERASE 12 U/L (15-37); BILIRUBIN,TOTAL 0.5 MG/DL (0.2-1.0)
[2019-05-25 03:50] VITALS: BP 145/89
--- NOTE | 2019-05-25 03:50 | NUR ---
ED Nurse Note: Pt laying in bed at this time. No n/v since ED arrival. Pt is in no acute distress. Will continue to monitor. VSS.
[2019-05-25 03:58] LABS: APPEARANCE,URINE CLEAR; BILIRUBIN, URINE NEGATIVE (NEGATIVE); GLUCOSE, URINE (UA) NEGATIVE (NEGATIVE); KETONES,URINE 1+ (NEGATIVE); LEUKOCYTE ESTERASE ,URINE 1+ (NEGATIVE); NITRITE,URINE NEGATIVE (NEGATIVE); PH,URINE 6.5 (4.5-8.0); PROTEIN,URINE 1+ (NEGATIVE); UROBILINOGEN,URINE 1 MG/DL (0.0-1.0)
[2019-05-25 04:00] LABS: COLOR,URINE YELLOW
[2019-05-25] MEDS ORDERED: Dicyclomine HCl 10mg/5ml oral soln ORAL ONE (04:00)
[2019-05-25] MEDS ORDERED: Morphine Sulfate 4mg/ml Inj (IV USE ONLY) IVP ONE (04:15)
[2019-05-25] MEDS ORDERED: cefTRIAXone 1 GM in NS 55 ML IVPB ONE (04:15)
[2019-05-25] MEDS ORDERED: OMEPRAZOLE20 M2 ORAL (04:56)
[2019-05-25] MEDS ORDERED: DICYCLOMINE HCL10 MG ORAL (04:56)
[2019-05-25] MEDS ORDERED: Omnipaque-300 100ml vial INJ PRN (05:00)
[2019-05-25] MEDS ORDERED: Haloperidol Lactate 5 MG in D5W 55 ML IVPB ONE (05:00)
--- NOTE | 2019-05-25 05:15 | NUR ---
ED Nurse Note: Pt refused CT and states "it's too expensive". Pt informed of risks/benefits and educated on importance of CT scan, pt still refused. ERMD made aware.
[2019-05-25] MEDS ORDERED: ONDANSETRON ODT4 MG BC (05:33)
--- NOTE | 2019-05-25 05:40 | NUR ---
ED Nurse Note: Pt is requesting to be DC and states that "If i'm not going to get any pain medicine, I want to be discharged". ERMD made aware.
[2019-05-25] MEDS ORDERED: Lidocaine 2% Visc 15ml soln ORAL ONE (05:45)
--- NOTE | 2019-05-25 05:48 | Diagnostic Imaging Report ---
EXAM: XR Chest, 1 View CLINICAL HISTORY: ABD PAIN TECHNIQUE: Frontal view of the chest. COMPARISON: 06/08/2018 FINDINGS: Lungs: Unremarkable. No consolidation. Pleural space: Unremarkable. No pneumothorax. Heart: Unremarkable. No cardiomegaly. Mediastinum: Unremarkable. Bones/joints: Unremarkable. IMPRESSION: Normal chest x-ray.
[2019-05-25 06:00] VITALS: BP 129/82
== END 2019-05-25 06:00 | disposition home or self-care (01) ==
LOC: EMR 03:02
DX: R10.13 Epigastric pain (principal); R11.2 Nausea with vomiting, unspecified
CPT/HCPCS: 36415; 71045; 80053; 80307; 81003; 83690; 84484; 85007; 85025; 86850; 86900; 86901; 96361; 96365; 96375; 99284; G0480; J0696; J1630; J2270; J2405; J7030; S0028

== ENCOUNTER 2019-06-01 15:17 | Emergency (ER) | payer BC ==
[~2019-06-01] VITALS: Ht 172.7 cm; Wt 63.5 kg
[~2019-06-01 15:17] MED LIST changes: +OMEPRAZOLE20 M2 ORAL; +QUETIAPINE FUMA25 MG ORAL
[2019-06-01 15:45] VITALS: BP 134/91
--- NOTE | 2019-06-01 15:45 | NUR ---
ED Nurse Note: Pt walked into ED for c/o abdominal pain with n/v since last night. Pt is aaox4, breathing is normal and unlabored, no cardiac distress noted. Pt appears anxious and is asking for pain medication. Pt has been [place] [facility] [place] similar complaint recently. Will continue to monitor.
[2019-06-01] MEDS ORDERED: Ketorolac 30mg Inj IV ONE (16:00)
[2019-06-01] MEDS ORDERED: Omnipaque-300 100ml vial INJ PRN (16:00)
--- NOTE | 2019-06-01 16:00 | NUR ---
ED Nurse Note: ER PA bedside speaking with patient. Pt requesting narcotics to manage pain. Pt denied CT scan stating it is too expensive.
--- NOTE | 2019-06-01 16:05 | NUR ---
ED Nurse Note: RN witnessed ER PA speaking with pt. Pt is displaying drug seeking behaviors stating that tylenol and other NSAID/pain medication does not work for him and is requesting specific narcotic medications. Pt repeatedly denied CT scan.
[2019-06-01] MEDS ORDERED: Ketorolac 30mg Inj ONE (16:10)
[2019-06-01] MEDS ORDERED: Ketorolac 30mg Inj IM ONE (16:15)
--- NOTE | 2019-06-01 16:18 | Emergency Room Report ---
History of Present Illness General Chief Complaint: Abdominal Pain Present Illness HPI 33-year-old male with history of gastritis and chronic pancreatitis as well as anxiety here complaining of worsening abdominal pain nausea vomiting. Patient was seen [place] [facility] 1 week ago, complete blood work was done, refused to get CT scan done as patient is unable to afford it. Patient repeatedly aspirated Dilaudid or morphine. Says that he just came back from another emergency room and was given tramadol for pain. Reports that he continues taking his diazepam for anxiety. Reports that he has been to straightener multiple times and been told that the pain is coming from his brain. Denies any alcohol intake, drug use. Reports that every now and then he smokes marijuana. Denies fever and chills, shortness of breath, chest pain, headache or dizziness. Patient keeps insisting that no other pain medication works but Dilaudid. Drug-seeking behavior observed. Nurse Jena witnessed our conversation. I offered patient to get get a CT scan of abdomen done as it was not as well as needs labs however patient refused as he does not want reported he just wants Dilaudid. However patient agrees to Toradol as well as Zofran. Allergies: Coded Allergies: No Known Allergies (Unverified , 05/28/18) COVID-19 Screening Contact w/high risk pt: No Recent Travel to affected area: No Experienced COVID-19 symptoms?: No Patient History Past Medical History: see triage record Past Surgical History: unable to obtain Pertinent Family History: none Social History: Reports: alcohol use, drug use Reviewed Nursing Documentation: PMH: Agreed; PSxH: Agreed Review of Systems All Other Systems: negative except mentioned in HPI Physical Exam Vital Signs Date Time Temp Pulse Resp B/P (MAP) Pulse Ox O2 Delivery O2 Flow Rate FiO2 06/01/19 15:38 98.6 93 18 134/91 (105) 97 Room Air Sp02 EP Interpretation: reviewed, normal General Appearance: no apparent distress, alert, GCS 15, non-toxic Head: normocephalic, atraumatic Eyes: bilateral eye normal inspection, bilateral eye PERRL ENT: hearing grossly normal, normal pharynx, no angioedema, normal voice Neck: full range of motion, supple/symm/no masses Respiratory: chest non-tender, lungs clear, normal breath sounds, no rhonchi, no retraction, speaking full sentences Cardiovascular #1: regular rate, rhythm, no edema, no murmur Gastrointestinal: non tender, soft, no mass Genitourinary: no CVA tenderness Musculoskeletal: back normal Neurologic: alert, oriented Psychiatric: judgement/insight normal, memory normal, mood/affect normal, no suicidal/homicidal ideation Skin: no rash Lymphatic: no adenopathy Medical Decision Making PA Attestation All diagnoses and treatment plans were reviewed and discussed with my supervising physician Dr. Ward Diagnostic Impression: Primary Impression: Chronic abdominal pain Additional Impression: Drug-seeking behavior ER Course 33-year-old male with history of gastritis and chronic pancreatitis as well as anxiety here complaining of worsening abdominal pain nausea vomiting. Patient was seen [place] [facility] 1 week ago, complete blood work was done, refused to get CT scan done as patient is unable to afford it. Patient repeatedly aspirated Dilaudid or morphine. Says that he just came back from another emergency room and was given tramadol for pain. Reports that he continues taking his diazepam for anxiety. Reports that he has been to straightener multiple times and been told that the pain is coming from his brain. Denies any alcohol intake, drug use. Reports that every now and then he smokes marijuana. Denies fever and chills, shortness of breath, chest pain, headache or dizziness. Patient keeps insisting that no other pain medication works but Dilaudid. Drug-seeking behavior observed. Nurse Jena witnessed our conversation. I offered patient to get get a CT scan of abdomen done as it was not as well as needs labs however patient refused as he does not want reported he just wants Dilaudid. However patient agrees to Toradol as well as Zofran. Ddx considered but are not limited to: appendicitis, cholecystis, gastritis, gastroenteritis, UTI, pyelonephritis, SBO, diverticulitis, influenza with GI manifestation, pancreatitis Vital signs: are WNL, pt. is afebrile H&PE are most consistent with: Chronic abdominal pain, drug-seeking behavior ORDERS: Patient refused all blood work and CT scan, Tylenol, Zofran, omeprazole ED INTERVENTIONS: Toradol, Zofran DISCHARGE: At this time pt. is stable for d/c to home. Will provide printed patient care instructions, and any necessary prescriptions. Care plan and follow up instructions have been discussed with the patient prior to discharge. Patient to follow-up primary straightener at this time narcotics as patient keeps coming requesting Dilaudid. Drug-seeking behavior observed. Given list of free clinics that patient can follow-up with. Last Vital Signs Date Time Temp Pulse Resp B/P (MAP) Pulse Ox O2 Delivery O2 Flow Rate FiO2 06/01/19 15:45 98.6 92 18 134/91 97 Room Air Disposition: HOME, SELF-CARE Condition: Stable Scripts Acetaminophen* (TYLENOL EXTRA STRENGTH*) 500 Mg Tablet 500 MG ORAL Q8H PRN for Prn Headache/Temp > 101, #30 TAB 0 Refills Prov: Ivan Kendall 06/01/19 Omeprazole (OMEPRAZOLE) 20 Mg Tablet.dr 20 MG ORAL DAILY, #20 TAB Prov: Ivan Kendall 06/01/19 Ondansetron (Zofran) 4 Mg Tablet 4 MG ORAL Q6H PRN for Nausea & Vomiting, #14 TAB Prov: Ivan Kendall 06/01/19 Patient Instructions: Abdominal Pain, Adult Additional Instructions: You need to follow-up with your straightener at this time no more narcotic pain medication can be given. You are already taking tramadol and under the care of primary doctor. Increase oral hydration. Ivan Kendall Jun 01, 2019 16:18
[2019-06-01] MEDS ORDERED: TYLENOL EXTRA500 MG ORAL (16:19)
[2019-06-01] MEDS ORDERED: ZOFRAN4 M1 ORAL (16:19)
[2019-06-01] MEDS ORDERED: OMEPRAZOLE20 M3 ORAL (16:19)
[2019-06-01 16:30] VITALS: BP 135/75
--- NOTE | 2019-06-01 16:30 | NUR ---
ER DISCHARGE NOTE: Patient is cleared to be discharged per ERMD, pt is aox4, on room air, with stable vital signs. pt was given dc and prescription instructions, pt was able to verbalize understanding, pt id band removed. pt is able to ambulate with steady gait. pt took all belongings.
== END 2019-06-01 16:30 | disposition home or self-care (01) ==
LOC: EMR 15:55
DX: R10.9 Unspecified abdominal pain (principal); G89.29 Other chronic pain; Z76.5 Malingerer [conscious simulation]; F41.9 Anxiety disorder, unspecified
CPT/HCPCS: 96372; 96374; 96375; 99284; J1885; J2405